=== PATIENT | female | born 1935 | race Caucasian/White ===

== ENCOUNTER 2016-12-23 19:06 | Emergency (ER) | payer OTHER, BC ==
[~2016-12-23] VITALS: Ht 152.4 cm; Wt 67.3 kg
[~2016-12-23 19:06] MED LIST: ACID CONTROL150 MG PO; ALLERGY MEDICIN25 M3 PO; ASPIR 8181 M1 PO; CIPRO500 MG PO; COLACE100 MG PO; COUMADIN5 MG PO; COUMADIN7.5 MG PO; DECADRON4 MG PO; DEXAMETHASONE4 MG PO; GLUCOPHAGE500 MG PO; LEVETIRACETAM500 MG PO; LIPITOR40 MG PO; LOPRESSOR50 MG PO; LORTAB 10 MG-3473 ML PO; MYCOSTATIN 100,60 ML PO; ONDANSETRON HCL4 MG PO; ONE DAILY1 EAC2 PO; OXYCODONE-ACET1 EACH PO; PRILOSEC20 MG PO; PRINIVIL10 MG PO; PRINIVIL20 MG PO; PROMETHAZINE HC25 M1 PO; WARFARIN SODIUM5 MG PO; coumadin; pericolace PO; zithromax
[2016-12-23 20:05] VITALS: BP 145/84
== END 2016-12-23 20:06 | disposition home or self-care (01) ==
LOC: EME 19:06
DX: Z03.89 Encounter for observation for other suspected diseases and conditions ruled out (principal); W01.0XXA Fall on same level from slipping, tripping and stumbling without subsequent striking against object, initial encounter; Y92.238 Other place in hospital as the place of occurrence of the external cause
CPT/HCPCS: 99281; 99284

== ENCOUNTER 2017-04-01 19:04 | Emergency (ER) | payer OTHER, BC ==
[~2017-04-01] VITALS: Ht 149.9 cm; Wt 67.4 kg
[2017-04-01 19:52] LABS: HEMATOCRIT 38.4 % (36.0-46.0); MCH 28.5 PG (29.0-34.0); MCHC 33.1 G/DL (30.0-36.0); MCV 86.3 FL (83-99); MEAN PLAT.VOLUME 9.3 uM^3 (9.5-12.4); PLATELET COUNT 231 K/uL (156-360); RBC DIS.WIDTH-CV 14.3 % (11.8-14.6); RBC DIS.WIDTH-SD 45.1 % (39-53); RED BLOOD COUNT 4.45 M/uL (3.80-5.20); WHITE BLOOD COUNT 5.9 K/uL (4.1-10.2)
[2017-04-01 19:57] LABS: CHLORIDE 101 mEq/L (99-109); SODIUM 133 mEq/L (136-147)
[2017-04-01 19:59] LABS: GLUCOSE 192 mg/dL (70-99)
[2017-04-01 20:00] LABS: ANION GAP 10 MEQ/L (2-14)
[2017-04-01 20:03] LABS: GFR ESTIMATE (CALCULATED) 57 mL/min/
[2017-04-01 20:04] LABS: UREA NITROGEN (BUN) 25 mg/dL (9-23)
[2017-04-01 20:04] LABS: ADD MIUA? YES; BILIRUBIN NEGATIVE; BLOOD MODERATE; COLOR YELLOW ((YELLOW)); GLUCOSE (STRIP) NEGATIVE; KETONES NEGATIVE; LEUKOCYTES SMALL; NITRITE NEGATIVE; PROTEIN (STRIP) 30; SPECIFIC GRAVITY 1.016 (1.000-1.030); UROBILINOGEN 0.2 MG/DL (0.2-1.0)
[2017-04-01 20:32] LABS: EPITHELIAL CELLS 1+ /HPF; MUCUS RARE /LPF; RED BLOOD CELLS 20-30 /HPF (0-5); WHITE BLOOD CELLS 0-5 /HPF (0-5)
[2017-04-01 20:33] LABS: BACTERIA 2+ /HPF; CASTS NONE SEEN /LPF; CRYSTALS NONE SEEN; UCUL ADDED? NO
[2017-04-01 23:24] VITALS: BP 148/90
== END 2017-04-01 23:25 | disposition home or self-care (01) ==
LOC: EME → EDBD 19:04 → EME 23:25
PROVIDERS: Emergency Medicine
DX: R53.1 Weakness (principal); W18.30XA Fall on same level, unspecified, initial encounter; C71.9 Malignant neoplasm of brain, unspecified; Z79.01 Long term (current) use of anticoagulants
CPT/HCPCS: 70450; 80048; 81003; 85027; 87077; 87086; 87186; 99281; 99285

== ENCOUNTER 2017-11-02 15:03 | Inpatient (IN) | payer OTHER, BC ==
[~2017-11-02] VITALS: Ht 152.4 cm; Wt 72.5 kg
[2017-11-02 16:34] LABS: BASOPHIL (%) 0.7 % (0-1); BASOPHIL COUNT 0.1 K/uL (0-0.1); EOSINOPHIL (%) 2.8 % (0-5); EOSINOPHIL COUNT 0.2 K/uL (0-0.3); HEMATOCRIT 39.7 % (36.0-46.0); HEMOGLOBIN 13.1 G/DL (11.9-15.5); IMMATURE GRANULOCYTE (%) 0.5 % (0.0-0.7); LYMPHOCYTE (%) 7.5 % (15-42); LYMPHOCYTE COUNT 0.6 K/uL (1.0-2.8); MONOCYTE (%) 10.3 % (3-12); MONOCYTE COUNT 0.8 K/uL (0-0.8); NEUTROPHIL (%) 78.2 % (45-76); NEUTROPHIL COUNT 5.8 K/uL (1.8-6.4); PLATELET COUNT 227 K/uL (156-360); RBC DIS.WIDTH-CV 14.4 % (11.8-14.6); RBC DIS.WIDTH-SD 46.2 % (39-53); RED BLOOD COUNT 4.51 M/uL (3.80-5.20); WHITE BLOOD COUNT 7.4 K/uL (4.1-10.2)
[2017-11-02 16:39] LABS: INTER. NORMALIZED RATIO 1.1
[2017-11-02 16:42] LABS: CHLORIDE 105 mEq/L (99-109); PTT 27.7 SEC (25-37); SODIUM 138 mEq/L (136-147)
[2017-11-02 16:43] LABS: MAGNESIUM 1.7 mg/dL (1.3-2.7)
[2017-11-02 16:44] LABS: GLUCOSE 107 mg/dL (70-99)
[2017-11-02 16:48] LABS: CREATININE 0.9 mg/dL (0.6-1.3); GFR ESTIMATE (CALCULATED) > 59 mL/min/
[2017-11-02 16:49] LABS: UREA NITROGEN (BUN) 21 mg/dL (9-23)
[2017-11-02 16:55] LABS: TROP-I INTERPRETATION NEGATIVE; TROPONIN-I 0.01 ng/mL (0.0-0.30)
[2017-11-02 17:07] LABS: APPEARANCE CLOUDY ((CLEAR)); BILIRUBIN NEGATIVE; BLOOD SMALL; COLOR YELLOW ((YELLOW)); GLUCOSE (STRIP) NEGATIVE; KETONES NEGATIVE; LEUKOCYTES LARGE; NITRITE POSITIVE; PROTEIN (STRIP) NEGATIVE; SPECIFIC GRAVITY 1.018 (1.000-1.030); UROBILINOGEN 0.2 MG/DL (0.2-1.0)
[2017-11-02 17:27] LABS: BACTERIA 3+ /HPF; EPITHELIAL CELLS 1+ /HPF; MUCUS NONE SEEN /LPF; RED BLOOD CELLS 0-5 /HPF (0-5); UCUL ADDED? YES
[2017-11-02] MEDS ORDERED: COMPAZINE10 MG PO (20:28)
[2017-11-02] MEDS ORDERED: SENNA8.6 MG PO (20:29)
[2017-11-02] MEDS ORDERED: TYLENOL REGULA325 MG PO (20:29)
[2017-11-02] MEDS ORDERED: BISAC-EVAC10 MG PR (20:30)
[2017-11-02] MEDS ORDERED: MORPHINE CON20 MG/M1 PO (20:31)
[2017-11-02] MEDS ORDERED: ATIVAN0.5 MG PO (20:32)
[2017-11-02] MEDS ORDERED: ANASPAZ0.125 MG PO (20:33)
[2017-11-02] MEDS ORDERED: HALDOL10 MG/5 ML PO (20:33)
[2017-11-02] MEDS ORDERED: VENTOLIN HFA18 GM IH (20:34)
[2017-11-02] MEDS ORDERED: ASPIR 8181 M1 PO (20:34)
[2017-11-02] MEDS ORDERED: ACEPHEN650 MG PR (20:48)
[2017-11-02] MEDS ORDERED: LOSARTAN POTASS25 MG PO (20:49)
[2017-11-03] VITALS (7 sets, daily range): BP systolic 132–175; BP diastolic 64–84
[2017-11-04 03:55] VITALS: BP 179/84
[2017-11-04 05:52] LABS: BASOPHIL (%) 0.4 % (0-1); EOSINOPHIL (%) 2.8 % (0-5); EOSINOPHIL COUNT 0.2 K/uL (0-0.3); HEMOGLOBIN 12.9 G/DL (11.9-15.5); IMMATURE GRANULOCYTE (%) 0.3 % (0.0-0.7); LYMPHOCYTE (%) 9.1 % (15-42); LYMPHOCYTE COUNT 0.7 K/uL (1.0-2.8); MCH 28.6 PG (29.0-34.0); MCHC 33.1 G/DL (30.0-36.0); MCV 86.5 FL (83-99); MONOCYTE (%) 11.9 % (3-12); MONOCYTE COUNT 0.9 K/uL (0-0.8); NEUTROPHIL (%) 75.5 % (45-76); NEUTROPHIL COUNT 5.5 K/uL (1.8-6.4); PLATELET COUNT 201 K/uL (156-360); RBC DIS.WIDTH-CV 14.3 % (11.8-14.6); RBC DIS.WIDTH-SD 45.5 % (39-53); RED BLOOD COUNT 4.51 M/uL (3.80-5.20); WHITE BLOOD COUNT 7.2 K/uL (4.1-10.2)
[2017-11-04 06:27] LABS: HDL CHOLESTEROL 48 MG/DL (Desirable>=50); LDL CHOLESTEROL 105 mg/dL (Desirable<100); NON-HDL CHOLESTEROL 128 mg/dL (Desirable<160); TOTAL CHOLESTEROL 176 mg/dL (Desirable<200); TRIGLYCERIDES 115 MG/DL (Normal: <150)
[2017-11-04 06:30] VITALS: BP 166/70
[2017-11-04 09:05] LABS: HEMOGLOBIN A1c (GLYCOHEMOGLOB) 6.1 % (Below 5.7)
[2017-11-04 11:26] VITALS: BP 147/70
[2017-11-04 15:41] VITALS: BP 167/74
[2017-11-04 20:23] VITALS: BP 177/80
[2017-11-04 23:49] VITALS: BP 123/57
[2017-11-05 03:33] VITALS: BP 126/58
[2017-11-05 07:08] VITALS: BP 142/69
[2017-11-05] MEDS ORDERED: CEFDINIR300 MG PO (10:05)
[2017-11-05] MEDS ORDERED: PRAVASTATIN SOD40 MG PO (10:05)
[2017-11-05] MEDS ORDERED: COZAAR50 MG PO (10:05)
[2017-11-05] MEDS ORDERED: ASPIR 8181 M1 PO (10:05)
[2017-11-05] MEDS ORDERED: ZOFRAN ODT4 MG PO (13:04)
[2017-11-05 15:22] VITALS: BP 146/78
[2017-11-05 19:53] VITALS: BP 183/75
[2017-11-05 21:26] VITALS: BP 140/66
[2017-11-05 23:49] VITALS: BP 150/70
[2017-11-06 03:37] VITALS: BP 142/80
[2017-11-06 07:38] VITALS: BP 142/79
[2017-11-06 10:34] VITALS: BP 155/70
[2017-11-06 16:14] VITALS: BP 156/72
== END 2017-11-06 17:15 | DRG 64 ==
LOC: EME 15:03 → EDOF 19:22 → 5EAST 19:22 → ENRESERV 19:24 → 5EAST 23:12 → ENPENDDIS 11-05 → 5EAST 11-06 17:15
PROVIDERS: Emergency Medicine; Hospitalist; Physician Assistant Medical
DX: I63.412 Cerebral infarction due to embolism of left middle cerebral artery (principal); N39.0 Urinary tract infection, site not specified; B96.20 Unspecified Escherichia coli [E. coli] as the cause of diseases classified elsewhere; G93.40 Encephalopathy, unspecified; C79.31 Secondary malignant neoplasm of brain; C34.11 Malignant neoplasm of upper lobe, right bronchus or lung; R29.810 Facial weakness; R47.01 Aphasia; I11.0 Hypertensive heart disease with heart failure; I50.9 Heart failure, unspecified; R29.6 Repeated falls; R11.2 Nausea with vomiting, unspecified; R32 Unspecified urinary incontinence; K59.00 Constipation, unspecified; E11.9 Type 2 diabetes mellitus without complications; I25.10 Atherosclerotic heart disease of native coronary artery without angina pectoris; E78.5 Hyperlipidemia, unspecified; F41.9 Anxiety disorder, unspecified; Z66 Do not resuscitate; I25.2 Old myocardial infarction; Z92.21 Personal history of antineoplastic chemotherapy; Z92.3 Personal history of irradiation; Z86.73 Personal history of transient ischemic attack (TIA), and cerebral infarction without residual deficits; Z79.82 Long term (current) use of aspirin; Z80.42 Family history of malignant neoplasm of prostate; Z82.49 Family history of ischemic heart disease and other diseases of the circulatory system; Z82.5 Family history of asthma and other chronic lower respiratory diseases; Z90.710 Acquired absence of both cervix and uterus; Z86.718 Personal history of other venous thrombosis and embolism; Z87.891 Personal history of nicotine dependence; Z95.1 Presence of aortocoronary bypass graft
CPT/HCPCS: 70450; 70553; 71045; 80048; 80061; 81003; 82948; 83036; 83735; 84484; 85025; 85610; 85730; 87040; 87077; 87086; 87186; 90686; 93005; 93880; 99202; 99281; 99285; J0360; J0696; J1644; J1956; J2405; Q0164

== ENCOUNTER 2017-12-29 14:29 | Emergency (ER) | payer OTHER, BC ==
[~2017-12-29] VITALS: Ht 134.6 cm; Wt 70.5 kg
[~2017-12-29 14:29] MED LIST changes: +ACEPHEN650 MG PR; +ANASPAZ0.125 MG PO; +ATIVAN0.5 MG PO; +BISAC-EVAC10 MG PR; +CEFDINIR300 MG PO; +COMPAZINE10 MG PO; +COZAAR50 MG PO; +HALDOL10 MG/5 ML PO; +LOSARTAN POTASS25 MG PO; +MORPHINE CON20 MG/M1 PO; +PRAVASTATIN SOD40 MG PO; +SENNA8.6 MG PO; +TYLENOL REGULA325 MG PO; +VENTOLIN HFA18 GM IH; +ZOFRAN ODT4 MG PO
[2017-12-29 20:08] VITALS: BP 152/82
== END 2017-12-29 20:07 ==
LOC: EME 14:29
DX: S09.90XA Unspecified injury of head, initial encounter (principal); W01.0XXA Fall on same level from slipping, tripping and stumbling without subsequent striking against object, initial encounter; Y92.129 Unspecified place in nursing home as the place of occurrence of the external cause; E11.9 Type 2 diabetes mellitus without complications; I10 Essential (primary) hypertension; I25.2 Old myocardial infarction; F41.9 Anxiety disorder, unspecified; Z79.01 Long term (current) use of anticoagulants; Z79.84 Long term (current) use of oral hypoglycemic drugs; Z87.891 Personal history of nicotine dependence; Z95.1 Presence of aortocoronary bypass graft; Z85.118 Personal history of other malignant neoplasm of bronchus and lung; Z85.841 Personal history of malignant neoplasm of brain; Z86.79 Personal history of other diseases of the circulatory system; Z90.49 Acquired absence of other specified parts of digestive tract; Z98.890 Other specified postprocedural states; Z88.1 Allergy status to other antibiotic agents; Z88.5 Allergy status to narcotic agent; Z88.2 Allergy status to sulfonamides; Z88.0 Allergy status to penicillin
CPT/HCPCS: 70450; 71046; 72170; 73080; 73110; 99281; 99284